=== PATIENT | male | born 1995 | race African-American/Black ===

== ENCOUNTER 2016-11-26 11:27 | Emergency (ER) | payer BC, OTHER ==
[~2016-11-26] VITALS: Ht 182.8 cm; Wt 68.0 kg
[~2016-11-26 11:27] MED LIST: ALBUTEROL0.09 MG/A2 IH; KEFLEX500 MG PO; MOTRIN800 MG PO; NKHM; PREDNICOT20 MG PO; ZANTAC 150150 MG PO; ZITHROMAX Z-PA250 MG PO
[2016-11-26 11:36] VITALS: BP 140/93
[2016-11-26 11:53] LABS: BASO # 0.1 10*3/uL (0.0-0.1); BASO % 0.5 % (0.0-1.0); EOS # 0.2 10*3/uL (0.0-0.4); EOS % 1.6 % (1.0-4.0); HEMATOCRIT 45.1 % (42.0-52.0); LYMPH # 3.6 10*3/uL (1.3-4.4); MEAN CELL VOLUME 90.7 fl (80.0-94.0); MEAN CORPUSCULAR HGB 30.2 pg (27.0-31.0); MEAN CORPUSCULAR HGB CONC 33.3 g/dl (33.0-37.0); MEAN PLATELET VOLUME 10.6 fl (9.6-12.3); MONO # 0.7 10*3/uL (0.1-1.0); MONO % 6.7 % (3.0-9.0); NEUT % 56.9 % (47.0-73.0); PLATELET COUNT AUTOMATED 187 10*3/uL (130-400); RED BLOOD COUNT 4.97 10*6/uL (4.50-5.90); RED CELL DISTRI WIDTH 12.9 % (0-14.5); WHITE BLOOD COUNT 10.5 10*3/uL (4.8-10.8)
[2016-11-26 12:10] LABS: ALKALINE PHOSPHATASE 63 U/L (45-117); BILIRUBIN, TOTAL 0.2 mg/dl (0.2-1.0); BUN 9 mg/dl (7-24); CARBON DIOXIDE 30 mmol/L (21-32); CHLORIDE 104 mmol/L (98-107); EST GLOM FILT AFRICAN AMERICAN > 60 ml/min; GLUCOSE 93 mg/dL (65-99); POTASSIUM 3.8 mmol/L (3.5-5.1); SGOT/AST 18 IU/L (3-35); SGPT/ALT 39 U/L (12-78); SODIUM 143 mmol/L (136-145); TOTAL PROTEIN 7.5 gm/dL (6.4-8.2)
[2016-11-26 12:11] LABS: TROPONIN I < 0.015 ng/ml (<0.045)
[2016-11-26 12:56] LABS: BILIRUBIN NEGATIVE (NEGATIVE); BLOOD NEGATIVE (NEGATIVE); CLARITY SL CLOUDY (CLEAR); COLOR YELLOW (YELLOW); GLUCOSE NEGATIVE (NEGATIVE); KETONE NEGATIVE (NEGATIVE); LEUKO ESTERASE NEGATIVE (NEGATIVE); NITRITE NEGATIVE (NEGATIVE); PH 7.5 (5.0-9.0); PROTEIN NEGATIVE (NEGATIVE); UROBILINOGEN 0.2 E.U./dl (0.2-1.0)
[2016-11-26 13:03] LABS: URINE AMPHETAMINES < 1000 (1000ng/ml); URINE BARBITURATES < 200 (200ng/ml); URINE COCAINE < 300 (300ng/ml)
[2016-11-26 13:08] LABS: URINE REFLEX COMMENT NO (NO)
[2016-11-26] MEDS ORDERED: ATIVAN0.5 MG PO (13:55)
== END 2016-11-26 14:10 | disposition home or self-care (01) ==
LOC: ED 11:27
PROVIDERS: Nurse Practitioner Family
DX: F41.9 Anxiety disorder, unspecified (principal); R55 Syncope and collapse; R07.9 Chest pain, unspecified

== ENCOUNTER 2018-01-11 23:53 | Emergency (ER) | payer BC, OTHER ==
[~2018-01-11] VITALS: Ht 172.7 cm; Wt 77.1 kg
[~2018-01-11 23:53] MED LIST changes: +ATIVAN0.5 MG PO
[2018-01-12] MEDS ORDERED: TYLENOL325 M1 PO (02:22)
[2018-01-12] MEDS ORDERED: IBU800 MG PO (02:22)
[2018-01-12 02:26] VITALS: BP 114/72
== END 2018-01-12 02:49 | disposition home or self-care (01) ==
LOC: ED 23:53
DX: S62.342A Nondisplaced fracture of base of third metacarpal bone, right hand, initial encounter for closed fracture (principal); S62.131A Displaced fracture of capitate [os magnum] bone, right wrist, initial encounter for closed fracture; S62.346A Nondisplaced fracture of base of fifth metacarpal bone, right hand, initial encounter for closed fracture; F41.9 Anxiety disorder, unspecified; W19.XXXA Unspecified fall, initial encounter; Y93.89 Activity, other specified; Y92.89 Other specified places as the place of occurrence of the external cause; Y99.9 Unspecified external cause status

== ENCOUNTER 2018-01-14 07:57 | Emergency (ER) | payer BC, OTHER ==
[~2018-01-14] VITALS: Ht 172.7 cm; Wt 77.1 kg
[~2018-01-14 07:57] MED LIST changes: +IBU800 MG PO; +TYLENOL325 M1 PO
[2018-01-14 08:01] VITALS: BP 127/87
== END 2018-01-14 08:41 | disposition home or self-care (01) ==
LOC: ED 07:57
DX: S62.392D Other fracture of third metacarpal bone, right hand, subsequent encounter for fracture with routine healing (principal); S62.396D Other fracture of fifth metacarpal bone, right hand, subsequent encounter for fracture with routine healing; S62.13 Fracture of capitate [os magnum] bone; X58.XXXD Exposure to other specified factors, subsequent encounter

== ENCOUNTER 2018-01-26 08:18 | Emergency (ER) | payer BC, OTHER ==
[~2018-01-26] VITALS: Ht 172.7 cm; Wt 77.1 kg
[2018-01-26 08:19] VITALS: BP 122/78
== END 2018-01-26 09:23 | disposition home or self-care (01) ==
LOC: ED 08:18
DX: M79.641 Pain in right hand (principal)

== ENCOUNTER 2018-10-17 11:00 | Emergency (ER) | payer BC, OTHER ==
[~2018-10-17] VITALS: Ht 172.7 cm; Wt 72.6 kg
--- NOTE | ~2018-10-17 | EKG ---
[place], [place] ELECTROCARDIOGRAM REPORT NAME: BRIGITTE CRUZ UNIT #: [id number] ROOM: DOCTOR: EPIPHANY DRAFT REPORT BIRTHDATE: [birth year] [facility] Test Date: 2018-10-17 Test Time: 11:50:52 Pat Name: BRIGITTE CRUZ Department: Room: Gender: Drafter Apprentice: Merry Magana : 1995 Requested By: JORDY MAYFIELD Order Number: [id number] Reading MD: Nilesh Kenny MD Measurements Intervals [place] Rate: 99 P: 66 AL: 153 QRS: 15 QRSD: 100 T: 55 QT: 347 QTc: 446 Interpretive Statements Sinus rhythm LVH No previous ECG available for comparison Electronically Signed On 10-19-2018 14:10:07 PST by Nilesh Kenny MD CM:EKGRPT:ELECTROCARDIOGRAM REPORT 1150 1410 JORDY MAYFIELD EPIPHANY DRAFT REPORT JORDY MAYFIELD
[2018-10-17 11:01] VITALS: BP 119/74
[2018-10-17] MEDS ORDERED: CLARITIN10 MG PO (11:06)
[2018-10-17] MEDS ORDERED: PREDNISONE10 MG PO (11:06)
[2018-10-17] MEDS ORDERED: FLONASE ALLERG9.9 ML NAS (11:06)
[2018-10-17 11:23] LABS: BASO % 0.4 % (0.0-1.0); EOS # 0.1 10*3/uL (0.0-0.4); EOS % 0.7 % (1.0-4.0); HEMATOCRIT 46.8 % (42.0-52.0); LYMPH # 1.2 10*3/uL (1.3-4.4); LYMPH % 12.4 % (27.0-41.0); MEAN CELL VOLUME 91.9 fl (80.0-94.0); MEAN CORPUSCULAR HGB 31.4 pg (27.0-31.0); MEAN CORPUSCULAR HGB CONC 34.2 g/dl (33.0-37.0); MEAN PLATELET VOLUME 10.6 fl (9.6-12.3); MONO # 1.2 10*3/uL (0.1-1.0); NEUT # 7.4 10*3/uL (2.3-7.9); NEUT % 74.3 % (47.0-73.0); PLATELET COUNT AUTOMATED 174 10*3/uL (130-400); RED BLOOD COUNT 5.09 10*6/uL (4.50-5.90); RED CELL DISTRI WIDTH 13.3 % (0-14.5)
[2018-10-17 11:46] LABS: ALBUMIN 4.1 gm/dl (3.1-4.5); ALKALINE PHOSPHATASE 70 U/L (45-117); BUN 13 mg/dl (7-24); CHLORIDE 104 mmol/L (98-107); CREATININE 1.13 mg/dL (0.70-1.30); LIPASE 163 U/L (73-393); POTASSIUM 3.8 mmol/L (3.5-5.1); SGOT/AST 11 IU/L (3-35); SGPT/ALT 21 U/L (12-78); SODIUM 138 mmol/L (136-145)
[2018-10-17 11:49] LABS: TROPONIN I < 0.015 ng/ml (<0.045)
[2018-10-17] MEDS ORDERED: ZOFRAN4 MG PO (12:07)
== END 2018-10-17 13:07 | disposition home or self-care (01) ==
LOC: ED 11:00
PROVIDERS: Nurse Practitioner Family
DX: B34.9 Viral infection, unspecified (principal); R11.2 Nausea with vomiting, unspecified

== ENCOUNTER 2020-12-03 17:34 | Emergency (ER) | payer OTHER ==
[~2020-12-03] VITALS: Ht 172.7 cm; Wt 74.8 kg
[~2020-12-03 17:34] MED LIST changes: +CLARITIN10 MG PO; +FLONASE ALLERG9.9 ML NAS; +PREDNISONE10 MG PO; +ZOFRAN4 MG PO
[2020-12-03 17:40] VITALS: BP 134/78
[2020-12-03] MEDS ORDERED: IBUPROFEN600 MG PO (18:47)
[2020-12-03] MEDS ORDERED: AMOXICILLIN500 M2 PO (18:47)
== END 2020-12-03 19:01 | disposition home or self-care (01) ==
LOC: ED 17:34
DX: K08.89 Other specified disorders of teeth and supporting structures (principal); J45.909 Unspecified asthma, uncomplicated; F17.200 Nicotine dependence, unspecified, uncomplicated; Z79.899 Other long term (current) drug therapy

== ENCOUNTER 2021-01-12 13:17 | Emergency (ER) | payer OTHER ==
[~2021-01-12] VITALS: Ht 172.7 cm; Wt 72.6 kg
[~2021-01-12 13:17] MED LIST changes: +AMOXICILLIN500 M2 PO; +IBUPROFEN600 MG PO
[2021-01-12 13:23] VITALS: BP 139/98
[2021-01-12] MEDS ORDERED: AMOXICILLIN500 M3 PO (13:58)
== END 2021-01-12 14:09 | disposition home or self-care (01) ==
LOC: ED 13:17
DX: K08.89 Other specified disorders of teeth and supporting structures (principal); Z79.2 Long term (current) use of antibiotics; Z79.899 Other long term (current) drug therapy

== ENCOUNTER 2021-03-22 23:27 | Inpatient (IN) | payer OTHER ==
[~2021-03-22] VITALS: Ht 172.7 cm; Wt 68.7 kg
[~2021-03-22 23:27] MED LIST changes: +AMOXICILLIN500 M3 PO
[2021-03-22 23:46] VITALS: BP 128/87
[2021-03-23 00:05] LABS: BASO # 0.1 10*3/uL (0.0-0.1); BASO % 0.5 % (0.0-1.0); EOS # 0.5 10*3/uL (0.0-0.4); EOS % 3.9 % (1.0-4.0); HEMATOCRIT 46.3 % (42.0-52.0); LYMPH # 4.3 10*3/uL (1.3-4.4); LYMPH % 35.1 % (27.0-41.0); MEAN CELL VOLUME 94.3 fl (80.0-94.0); MEAN CORPUSCULAR HGB 29.9 pg (27.0-31.0); MEAN CORPUSCULAR HGB CONC 31.7 g/dl (33.0-37.0); MEAN PLATELET VOLUME 10.4 fl (9.6-12.3); MONO # 0.9 10*3/uL (0.1-1.0); MONO % 7.2 % (3.0-9.0); NEUT # 6.5 10*3/uL (2.3-7.9); NEUT % 52.9 % (47.0-73.0); PLATELET COUNT AUTOMATED 288 10*3/uL (130-400); RED BLOOD COUNT 4.91 10*6/uL (4.50-5.90); RED CELL DISTRI WIDTH 12.9 % (0-14.5); WHITE BLOOD COUNT 12.2 10*3/uL (4.8-10.8)
[2021-03-23 00:23] LABS: ALBUMIN 3.9 gm/dl (3.1-4.5); ALKALINE PHOSPHATASE 81 U/L (45-117); BUN 8 mg/dl (7-24); CHLORIDE 104 mmol/L (98-107); CPK 209 U/L (39-308); CREATININE 0.97 mg/dL (0.70-1.30); POTASSIUM 3.8 mmol/L (3.5-5.1); SGOT/AST 31 IU/L (3-35); SGPT/ALT 38 U/L (12-78); SODIUM 139 mmol/L (136-145); TOTAL PROTEIN 7.9 gm/dL (6.4-8.2)
[2021-03-23 08:00] VITALS: BP 131/73
[2021-03-23 11:38] LABS: BILIRUBIN Negative (Negative); BLOOD Negative (Negative); CLARITY Clear (Clear); COLOR Yellow (Yellow); GLUCOSE Negative (Negative); KETONE Negative (Negative); LEUKO ESTERASE 1+ (Negative); NITRITE Negative (Negative); PH 5.5 (4.5-8.0); SPECIFIC GRAVITY 1.015 (1.001-1.030); UROBILINOGEN 0.2 E.U./dl (0.0-1.0)
[2021-03-23 11:47] LABS: URINE AMPHETAMINES > 1000 (1000ng/ml); URINE BARBITURATES < 200 (200ng/ml); URINE BENZODIAZEPINES < 200 (200ng/ml); URINE CANNABINOIDS (THC) < 50 (50ng/ml); URINE COCAINE > 300 (300ng/ml); URINE METHADONE < 300 (300ng/ml); URINE OPIATES < 300 (300ng/ml)
[2021-03-23 11:52] LABS: BACTERIA TRACE; MUCOUS 1+
[2021-03-23 11:54] LABS: URINE PHENCYCLIDINE < 25 (25ng/ml)
[2021-03-23 12:00] VITALS: BP 129/56
[2021-03-23 16:26] VITALS: BP 122/75
[2021-03-23 20:45] VITALS: BP 120/80
[2021-03-24 02:00] VITALS: BP 122/80
[2021-03-24 05:29] LABS: BUN 8 mg/dl (7-24); CHLORIDE 112 mmol/L (98-107); CREATININE 0.87 mg/dL (0.70-1.30); POTASSIUM 3.2 mmol/L (3.5-5.1); SODIUM 137 mmol/L (136-145)
[2021-03-24 05:36] VITALS: BP 103/58
[2021-03-24 05:56] LABS: BASO % 0.3 % (0.0-1.0); EOS # 0.1 10*3/uL (0.0-0.4); EOS % 0.6 % (1.0-4.0); HEMATOCRIT 40.7 % (42.0-52.0); LYMPH # 3.3 10*3/uL (1.3-4.4); LYMPH % 27.8 % (27.0-41.0); MEAN CELL VOLUME 93.6 fl (80.0-94.0); MEAN CORPUSCULAR HGB 30.1 pg (27.0-31.0); MEAN CORPUSCULAR HGB CONC 32.2 g/dl (33.0-37.0); MEAN PLATELET VOLUME 10.9 fl (9.6-12.3); MONO # 0.7 10*3/uL (0.1-1.0); MONO % 5.6 % (3.0-9.0); NEUT # 7.6 10*3/uL (2.3-7.9); NEUT % 65.4 % (47.0-73.0); PLATELET COUNT AUTOMATED 231 10*3/uL (130-400); RED BLOOD COUNT 4.35 10*6/uL (4.50-5.90); WHITE BLOOD COUNT 11.7 10*3/uL (4.8-10.8)
[2021-03-24 07:40] VITALS: BP 109/66
[2021-03-24 11:47] VITALS: BP 112/76
[2021-03-24 12:23] VITALS: BP 115/69
== END 2021-03-24 15:18 | disposition home or self-care (01) | DRG 812 ==
LOC: ED 23:27 → 5E 03-23 11:09 → EDHOLD 03-23 11:09 → 5E 03-24 11:31
PROVIDERS: Emergency Medicine; Internal Medicine; ADMIT Emergency Medicine; ATTEND Emergency Medicine
DX: T40.604A Poisoning by unspecified narcotics, undetermined, initial encounter (principal); E87.2 Acidosis; R65.10 Systemic inflammatory response syndrome (SIRS) of non-infectious origin without acute organ dysfunction; F11.10 Opioid abuse, uncomplicated; F41.9 Anxiety disorder, unspecified; Y92.89 Other specified places as the place of occurrence of the external cause; Z71.51 Drug abuse counseling and surveillance of drug abuser; Z83.3 Family history of diabetes mellitus; Z82.49 Family history of ischemic heart disease and other diseases of the circulatory system; Z80.9 Family history of malignant neoplasm, unspecified

== ENCOUNTER 2021-08-07 19:39 | Emergency (ER) | payer OTHER ==
[~2021-08-07] VITALS: Ht 172.7 cm; Wt 68.0 kg
[2021-08-07 19:55] VITALS: BP 119/72
[2021-08-07] MEDS ORDERED: PENICILLIN VK500 MG PO (21:36)
== END 2021-08-07 21:48 | disposition home or self-care (01) ==
LOC: ED 19:39
DX: K04.7 Periapical abscess without sinus (principal)

== ENCOUNTER 2021-08-21 18:18 | Emergency (ER) | payer OTHER ==
[~2021-08-21 18:18] MED LIST changes: +PENICILLIN VK500 MG PO
[2021-08-21] MEDS ORDERED: ZESTRIL40 MG PO (19:46)
[2021-08-21] MEDS ORDERED: HYDR12.5C PO (19:46)
[2021-08-21] MEDS ORDERED: SYMB160 INH (19:46)
[2021-08-21] MEDS ORDERED: NAPROXEN250 MG PO (22:31)
[2021-08-21] MEDS ORDERED: METHOCARBAMOL500 M1 PO (22:31)
== END 2021-08-21 23:10 | disposition left against medical advice (07) ==
LOC: ED 18:18
DX: M25.552 Pain in left hip (principal); Z53.21 Procedure and treatment not carried out due to patient leaving prior to being seen by health care provider

== ENCOUNTER 2021-08-21 20:05 | Emergency (ER) | payer OTHER ==
[~2021-08-21] VITALS: Ht 172.7 cm; Wt 68.0 kg
[~2021-08-21 20:05] MED LIST changes: +HYDR12.5C PO; +SYMB160 INH; +ZESTRIL40 MG PO
[2021-08-21 20:43] VITALS: BP 110/75
[2021-08-21] MEDS ORDERED: METHOCARBAMOL500 M1 PO (22:31)
[2021-08-21] MEDS ORDERED: NAPROXEN250 MG PO (22:31)
== END 2021-08-21 22:47 | disposition home or self-care (01) ==
LOC: ED 20:05
DX: S39.012A Strain of muscle, fascia and tendon of lower back, initial encounter (principal); X50.9XXA Other and unspecified overexertion or strenuous movements or postures, initial encounter; Y93.89 Activity, other specified; Y92.89 Other specified places as the place of occurrence of the external cause; Y99.8 Other external cause status

== ENCOUNTER 2021-10-27 18:20 | Emergency (ER) | payer OTHER ==
[~2021-10-27] VITALS: Ht 172.7 cm; Wt 72.6 kg
[~2021-10-27 18:20] MED LIST changes: +METHOCARBAMOL500 M1 PO; +NAPROXEN250 MG PO
[2021-10-27 18:36] VITALS: BP 126/78
[2021-10-27] MEDS ORDERED: CYCLOBENZAPRINE10 MG PO (18:46)
[2021-10-27] MEDS ORDERED: PREDNISONE50 MG PO (18:46)
== END 2021-10-27 19:09 | disposition home or self-care (01) ==
LOC: ED 18:20
DX: M54.50 Low back pain, unspecified (principal)

== ENCOUNTER 2021-11-06 07:13 | Emergency (ER) | payer OTHER ==
[~2021-11-06] VITALS: Ht 180.3 cm; Wt 68.0 kg
[~2021-11-06 07:13] MED LIST changes: +CYCLOBENZAPRINE10 MG PO; +PREDNISONE50 MG PO
== END 2021-11-06 09:01 | disposition home or self-care (01) ==
LOC: ED 07:13
DX: M54.9 Dorsalgia, unspecified (principal)